=== PATIENT | female | born 1965 | race Caucasian/White ===

== ENCOUNTER 2021-05-28 13:36 | Emergency (ER) | payer OTHER ==
[~2021-05-28 13:36] MED LIST: CELEXA20 MG PO; CIPRO500 MG PO; IBUPROFEN800 MG PO; LOPRESSOR50 MG PO; METRONIDAZOLE500 MG PO; NAPROXEN500 MG PO; NEURONTIN300 MG PO; NORCO 5-325 TA1 EACH PO; ONDANSETRON ODT4 MG SL; TOPROL XL 50 MG50 MG PO; WELLBUTRIN SR150 MG PO; ZOFRAN4 MG PO
== END 2021-05-28 15:25 | disposition left against medical advice (07) ==
LOC: FER 13:36
DX: R07.89 Other chest pain (principal); Z53.8 Procedure and treatment not carried out for other reasons
CPT/HCPCS: 93005

== ENCOUNTER 2021-12-10 20:50 | Emergency (ER) | payer OTHER ==
[~2021-12-10 20:50] MED LIST changes: +ANTIVERT25 MG PO; +ONDANSETRON ODT4 MG PO; +PRILOSEC20 MG PO
[2021-12-10 21:19] LABS: BASOPHIL 0.5 % (0-2); EOSINOPHIL 1.7 % (0-5); HCT 34.9 % (37.0-47.0); HGB 11.6 g/dl (12.5-16.0); LYMPHOCYTE 34.4 % (15-48); MCH 27.2 pg (25.0-31.0); MCHC 33.2 g/dL (32.0-36.0); MCV 81.7 fL (78.0-100.0); MONOCYTE 7.5 % (0-12); MPV 8.6 fL (6.0-9.5); NEUTROPHIL 55.5 % (41-80); NRBC 0; PLT 292 K/uL (150-400); RBC 4.27 M/uL (4.20-5.40); RDW 14.1 % (11.5-14.0); WBC 7.5 K/uL (4.0-10.5)
[2021-12-10 21:41] LABS: ALBUMIN 3.1 g/dL (3.4-5.0); BILIRUBIN - TOTAL 0.2 mg/dL (0.2-1.0); BUN/CREAT RATIO (CALC) 17.8 RATIO; CREATININE 0.73 mg/dL (0.51-0.95); GLOBULIN (CALCULATION) 3.3 g/dL; MAGNESIUM 1.7 mg/dL (1.8-2.4); POTASSIUM 3.3 mmol/L (3.5-5.1); TOTAL PROTEIN 6.4 g/dL (6.4-8.2)
[2021-12-10 21:58] LABS: CORONAVIRUS 2019 SARS-COV-2 NEGATIVE (NEGATIVE); INFLUENZA A NAA NEGATIVE (NEGATIVE)
== END 2021-12-10 23:15 | disposition home or self-care (01) ==
LOC: FER 20:50
PROVIDERS: Emergency Medicine
DX: R07.89 Other chest pain (principal); J06.9 Acute upper respiratory infection, unspecified; B97.89 Other viral agents as the cause of diseases classified elsewhere; I10 Essential (primary) hypertension; Z20.822 Contact with and (suspected) exposure to COVID-19; Z79.899 Other long term (current) drug therapy
CPT/HCPCS: 36415; 71045; 80053; 83735; 83880; 84484; 85025; 93005; J1885; J7030; U0002

== ENCOUNTER 2022-02-02 20:29 | Emergency (ER) | payer OTHER ==
[2022-02-02 23:02] LABS: CORONAVIRUS 2019 SARS-COV-2 NEGATIVE (NEGATIVE); INFLUENZA A NAA NEGATIVE (NEGATIVE)
[2022-02-03 00:31] LABS: BUN/CREAT RATIO (CALC) 14.6 RATIO; CREATININE 0.89 mg/dL (0.51-0.95); POTASSIUM 3.6 mmol/L (3.5-5.1)
[2022-02-03 00:40] LABS: BASOPHIL 0.6 % (0-2); EOSINOPHIL 1.2 % (0-5); HCT 40.7 % (37.0-47.0); HGB 13.4 g/dl (12.5-16.0); LYMPHOCYTE 35.1 % (15-48); MCH 27.6 pg (25.0-31.0); MCHC 32.9 g/dL (32.0-36.0); MCV 83.7 fL (78.0-100.0); MONOCYTE 9.7 % (0-12); MPV 8.1 fL (6.0-9.5); NRBC 0; PLT 314 K/uL (150-400); RBC 4.86 M/uL (4.20-5.40); RDW 14.3 % (11.5-14.0); WBC 6.9 K/uL (4.0-10.5)
[2022-02-03] MEDS ORDERED: MEDROL 4MG DOSEP4 MG PO (00:41)
[2022-02-03] MEDS ORDERED: AMOX TR-K CLV1 EAC4 PO (00:41)
[2022-02-03] MEDS ORDERED: TESSALON PERLE100 MG PO (00:41)
== END 2022-02-03 02:12 | disposition home or self-care (01) ==
LOC: FER 20:29
PROVIDERS: Internal Medicine
DX: J32.9 Chronic sinusitis, unspecified (principal); R06.02 Shortness of breath; I10 Essential (primary) hypertension; Z20.822 Contact with and (suspected) exposure to COVID-19; Z88.5 Allergy status to narcotic agent; Z79.899 Other long term (current) drug therapy
CPT/HCPCS: 36415; 80048; 85025; 99284; J1100; U0002

== ENCOUNTER 2022-02-26 14:50 | Emergency (ER) | payer OTHER ==
[~2022-02-26 14:50] MED LIST changes: +AMOX TR-K CLV1 EAC4 PO; +MEDROL 4MG DOSEP4 MG PO; +TESSALON PERLE100 MG PO
[2022-02-26 15:24] LABS: BASOPHIL 0.6 % (0-2); EOSINOPHIL 1.3 % (0-5); HCT 37.5 % (37.0-47.0); HGB 12.5 g/dl (12.5-16.0); LYMPHOCYTE 32.1 % (15-48); MCH 27.2 pg (25.0-31.0); MCHC 33.3 g/dL (32.0-36.0); MCV 81.7 fL (78.0-100.0); MONOCYTE 8.2 % (0-12); MPV 8.5 fL (6.0-9.5); NEUTROPHIL 57.3 % (41-80); NRBC 0; PLT 361 K/uL (150-400); RBC 4.59 M/uL (4.20-5.40); RDW 14.3 % (11.5-14.0)
[2022-02-26 15:31] LABS: INR 0.95 (0.9-1.2); PROTHROMBIN TIME 12.4 SECONDS (11.9-13.9)
[2022-02-26 15:32] LABS: PTT 26.3 SECONDS (24.9-34.6)
[2022-02-26 15:42] LABS: ALBUMIN 3.4 g/dL (3.4-5.0); BILIRUBIN - TOTAL 0.3 mg/dL (0.2-1.0); BUN/CREAT RATIO (CALC) 17.8 RATIO; CREATININE 0.9 mg/dL (0.51-0.95); GLOBULIN (CALCULATION) 3.3 g/dL; POTASSIUM 3.4 mmol/L (3.5-5.1); TOTAL PROTEIN 6.7 g/dL (6.4-8.2)
[2022-02-26 16:00] LABS: CORONAVIRUS 2019 SARS-COV-2 NEGATIVE (NEGATIVE); INFLUENZA A NAA NEGATIVE (NEGATIVE)
[2022-02-26] MEDS ORDERED: PRILOSEC20 MG PO (18:21)
== END 2022-02-26 19:01 | disposition home or self-care (01) ==
LOC: FER 14:50
PROVIDERS: Internal Medicine
DX: K21.9 Gastro-esophageal reflux disease without esophagitis (principal); R07.89 Other chest pain; I10 Essential (primary) hypertension; Z20.822 Contact with and (suspected) exposure to COVID-19; Z90.49 Acquired absence of other specified parts of digestive tract; Z87.891 Personal history of nicotine dependence; Z28.310 Unvaccinated for COVID-19; Z88.5 Allergy status to narcotic agent; Z90.710 Acquired absence of both cervix and uterus; Z98.890 Other specified postprocedural states
CPT/HCPCS: 36415; 71045; 80053; 84484; 85025; 85610; 85730; 93005; J1170; J2405; U0002